=== PATIENT | male | born 1965 | race Hispanic/Latino ===

== ENCOUNTER 2023-11-14 13:55 | Emergency (ER) | payer SELFPAY ==
[~2023-11-14] VITALS: Ht 157.5 cm; Wt 68.0 kg
[2023-11-14] MEDS ORDERED: SODIUM CHLORIDE 0.9% 1,000 ML IV ONE (14:00)
[2023-11-14 14:21] LABS: BASO% 0.2 % (0-3); EOS% 0.4 % (0-8); HEMATOCRIT 44.7 % (39.0-50.0); HEMOGLOBIN 16.2 g/dl (14.0-18.0); IMMATURE GRANULOCYTES 0.4 % (0.0-5.0); LYMPH% 8.7 % (15-41); MEAN CELL VOLUME 92.5 fL CALC (80.0-100.0); MEAN CORPUSCULAR HGB 33.5 pG CALC (26.0-32.0); MEAN CORPUSCULAR HGB CONC 36.2 g/dL CAL (32.0-36.0); MONO% 6.4 % (2-13); NEUT# 7.11 thou/uL (1.82-7.42); NEUT% 83.9 % (42-76); RED BLOOD COUNT 4.83 mill/uL (4.70-6.10); RED CELL DISTRI WIDTH 11.1 % (11.5-15.5)
[2023-11-14 14:30] LABS: ALBUMIN 4.3 g/dL (3.2-5.0); ALKALINE PHOSPHATASE 129 u/l (38-126); ANION GAP 11 (6-22 (CALC)); BILIRUBIN, TOTAL 0.7 mg/dL (0.2-1.3); BUN 15 mg/dL (9-20); BUN/CREATININE RATIO 23 (12-20 (CALC)); CARBON DIOXIDE 29 mmol/l (22-30); CHLORIDE 101 mmol/l (95-108); CPK 68 u/l (55-170); CREATININE 0.6 mg/dL (0.7-1.3); GFR FOR AFR.AMER. > 60 ML/MIN (>=60 (CALC)); GFR OTHER RACES > 60 ML/MIN (>=60 (CALC)); POTASSIUM 3.8 mmol/l (3.5-5.1); SGOT/AST 42 u/l (17-59); SODIUM 136 mmol/l (137-146); TOTAL PROTEIN 7.5 g/dL (6.3-8.2)
[2023-11-14 17:07] VITALS: BP 132/80
== END 2023-11-14 17:23 | disposition home or self-care (01) | DRG 948 ==
LOC: ED 13:55
PROVIDERS: Family Medicine
DX: R53.1 Weakness (principal); Z20.822 Contact with and (suspected) exposure to COVID-19